=== PATIENT | female | born 1995 | race Caucasian/White ===

== ENCOUNTER 2017-10-06 16:05 | Emergency (ER) | payer BC ==
[~2017-10-06] VITALS: Ht 157.5 cm; Wt 60.3 kg
[2017-10-06 16:23] VITALS: TEMP 36.9; Ht 157.5 cm; Wt 60.3 kg
[2017-10-06] MEDS ORDERED: IBUPROFEN 600 MG TAB PO STA (16:31)
--- NOTE | 2017-10-06 17:12 | EMERGENCY ROOM VISIT NOTE ---
ED Visit Note First contact with patient: 16:25 CHIEF COMPLAINT: Left Ankle pain HISTORY OF PRESENT ILLNESS: This 21-year-old female patient presents to the emergency department one day after sustaining an injury to the left ankle and foot with a twisting, inversion motion while getting out of bed. The patient states she has a very high bed, and last night she was wearing socks. She states she jumped out of bed, and her ankle twisted, causing severe pain in the ankle and radiating into the foot. The patient states she put some ice on that ankle and went back to bed. When she woke, she found that the swelling and pain were worse, and she is having difficulty ambulating. The patient states pain is significantly worse on palpation. The patient complains of pain along the outside and inside of the ankle. The patient denies pain of the foot. The patient rates the pain as diffuse and throbbing and 9/10. The patient is not able to bear weight on the foot. Constant pain, worse with movement, weight bearing, and the dependent position. No knee pain, the patient is able to move their toes. No numbness or weakness of the foot, no laceration. The patient has not had a previous fracture to this ankle. The patient has taken 2 Aleve last night for the pain, but has taken nothing today. The patient denies any other injury. REVIEW OF SYSTEMS: A 6 system review of systems was completed with positives and pertinent negatives listed in the HPI. ALLERGIES: None MEDICATIONS: None PMH: None SOCIAL HISTORY: Is a [email or web address] student. She denies drug, alcohol, tobacco use. She lives locally with her remain. PHYSICAL EXAM: Vital Signs: Reviewed Nurse's notes, vital signs stable. GENERAL : This is a 21-year-old female, no acute distress, but appears in pain, well- developed, well-nourished. MENTAL STATUS: Alert, oriented to person place and time, and cooperative. MUSCULOSKELETAL: The left ankle is swollen and tender over the lateral and medial malleoli, but the skin is intact and there is no ligamentous instability. There is no fifth metatarsal tenderness. There is no tenderness over the rest of the foot. There is no calf or tibia/fibular tenderness. There is no visual deformity. The foot and toes are warm and well- perfused. Dorsalis pedis pulse 2+. Sensation to pain and light touch is intact. Capillary refill less than 2 seconds. RADIOLOGY: L ANKLE MIN 3 VIEWS ROUTINE CLINICAL HISTORY: 21 years-old Female presenting with left ankle pain/swelling (medial and lateral tenderness). TECHNIQUE: Frontal, mortise, and lateral views of the left ankle were obtained. COMPARISON: None. FINDINGS: Ankle mortise intact. Soft tissue swelling noted diffusely at the ankle. No acute fracture or malalignment. Os trigonum noted. IMPRESSION: No acute osseous injury of the left ankle. Electronically signed by: Shoaib New M.D. 10/06/2017 5:25 PM Dictated Date/Time: 10/06/2017 5:24 PM EMERGENCY DEPARTMENT COURSE: I examined the patient. She was given 600 mg ibuprofen and an ice pack. X-rays of the left ankle were reviewed by myself and read by radiology and reveal no acute osseous injury. A gel ankle splint was applied to the ankle under my direction and the position was satisfactory. Neurovascular status was rechecked and intact. The patient was instructed on the use of crutches. The patient was discharged home in good condition. I attest that I have personally reviewed the patient's current medication list. Patient was found to have normal blood pressure on screening and does not require follow-up. DIFFERENTIAL DIAGNOSIS: Sprain, strain, fracture, contusion, and others DIAGNOSIS: Left ankle sprain Current/Historical Medications Unable to Obtain Active Prescriptions or Reported Meds Vital Signs Date Time Temp Pulse Resp B/P (MAP) Pulse Ox O2 Delivery O2 Flow Rate FiO2 10/06/17 17:36 93 18 115/66 100 Room Air 10/06/17 16:23 36.9 98 18 129/76 98 Medications Administered Medications (Trade) Dose Ordered Sig/Иван Route Start Time Stop Time Status Last Admin Dose Admin Ibuprofen (Motrin Tab) 600 mg NOW STAT PO 10/06/17 16:31 10/06/17 16:33 DC 10/06/17 16:40 600 MG Departure Information Impression Primary Impression: Left ankle sprain Dispostion Home / Self-Care Condition GOOD Prescriptions Unable to Obtain Active Prescriptions or Reported Meds Referrals No Doctor, Assigned (PCP) Emerson Gilbert MD [facility] Patient Instructions ED Fx Ankle Lateral Malleolus, My [facility] Additional Instructions ORTHOPEDIC INSTRUCTIONS: Ibuprofen(Motrin, Advil) may be used for fever or pain. Use 600mg every six hours as needed. Take with food. Avoid using more than 2400mg in a 24 hour period. Do not use 2400mg per day for more than three consecutive days without physician direction. Prolonged inappropriate use can lead to stomach upset or ulcers. (AND/OR) Acetaminophen(Tylenol) may be used for fever or pain. Use 1000mg every six hours as needed. Avoid using more than 3000mg in a 24 hour period. Ice compresses for 20 minutes at a time four times daily for 2-3 days. Use the crutches as instructed. Rest and elevate your injury. Use the gel ankle splint to help with discomfort and compression of the ankle. Return to the ER immediately for any numbness, tingling, severe pain, extreme swelling in the extremity or as needed. Call [facility], [phone], if no improvement in 1 week, to arrange follow up for your injury. Follow-up with your primary care physician in 2 to 3 days for a recheck of your current condition. Problem Qualifiers Primary Impression: Left ankle sprain Encounter type: initial encounter Involved ligament of ankle: unspecified ligament Qualified Codes: S93.402A - Sprain of unspecified ligament of left ankle, initial encounter
--- NOTE | 2017-10-06 17:26 | DIAGNOSTIC IMAGING REPORT ---
L ANKLE MIN 3 VIEWS ROUTINE CLINICAL HISTORY: 21 years-old Female presenting with left ankle pain/swelling (medial and lateral tenderness). TECHNIQUE: Frontal, mortise, and lateral views of the left ankle were obtained. COMPARISON: None. FINDINGS: Ankle mortise intact. Soft tissue swelling noted diffusely at the ankle. No acute fracture or malalignment. Os trigonum noted. IMPRESSION: No acute osseous injury of the left ankle. Electronically signed by: Shoaib New M.D. 10/06/2017 5:25 PM Dictated Date/Time: 10/06/2017 5:24 PM
[2017-10-06 17:36] VITALS: BP 115/66; PULSE 93; O2SAT 100
== END 2017-10-06 17:48 | disposition home or self-care (01) ==
LOC: C.EDB 16:06 → C.EDD 17:48
DX: S99.912A Unspecified injury of left ankle, initial encounter (principal); X58.XXXA Exposure to other specified factors, initial encounter